=== PATIENT | male | born 1935 ===

== ENCOUNTER 2024-02-07 07:02 | Day surgery (SDC) | payer OTHER ==
[2024-02-07] MEDS ORDERED: DIPHENHYDRAMINE HCL 50 MG/ML VIAL 1ML IV ONE (10:45)
[2024-02-07] MEDS ORDERED: fentaNYL CITRATE 50 MCG/ML AMPUL IV ONE (10:45)
[2024-02-07] MEDS ORDERED: MIDAZOLAM HCL 2 MG/2 ML VIAL IV ONE (10:45)
== END 2024-02-07 12:05 | disposition home or self-care (01) ==
LOC: AMB-ENDOS 07:02
PROVIDERS: ATTEND Surgery
DX: D12.3 Benign neoplasm of transverse colon (principal); D12.5 Benign neoplasm of sigmoid colon; K57.30 Diverticulosis of large intestine without perforation or abscess without bleeding; K63.5 Polyp of colon